=== PATIENT | male | born 1985 | race Caucasian/White ===

== ENCOUNTER 2019-11-13 11:17 | Observation (INO) | payer OTHER ==
[2019-11-13] VITALS (9 sets, daily range): BP systolic 99–121; BP diastolic 43–78
[~2019-11-13] VITALS: Ht 177.8 cm; Wt 84.9 kg
[~2019-11-13 11:17] MED LIST: BACTRIM DS 8001 TA1 PO; KEFLEX500 M1 PO; NAPROSYN500 MG PO
[2019-11-13 12:24] LABS: BASO # 0.1 10*3/uL (0.0-0.1); BASO % 0.3 % (0.0-1.0); EOS % 0.2 % (1.0-4.0); HEMATOCRIT 45.9 % (42.0-52.0); LYMPH # 1.2 10*3/uL (1.3-4.4); LYMPH % 6.7 % (27.0-41.0); MEAN CORPUSCULAR HGB 29.9 pg (27.0-31.0); MEAN CORPUSCULAR HGB CONC 32.5 g/dl (33.0-37.0); MEAN PLATELET VOLUME 8.8 fl (9.6-12.3); MONO # 1.1 10*3/uL (0.1-1.0); MONO % 6.1 % (3.0-9.0); NEUT # 15.8 10*3/uL (2.3-7.9); NEUT % 85.9 % (47.0-73.0); PLATELET COUNT AUTOMATED 304 10*3/uL (130-400); RED BLOOD COUNT 4.99 10*6/uL (4.50-5.90); RED CELL DISTRI WIDTH 13.6 % (0-14.5); WHITE BLOOD COUNT 18.5 10*3/uL (4.8-10.8)
[2019-11-13 12:41] LABS: ALBUMIN 3.5 gm/dl (3.1-4.5); ALKALINE PHOSPHATASE 72 U/L (45-117); BUN 14 mg/dl (7-24); CHLORIDE 113 mmol/L (98-107); CREATININE 1.25 mg/dL (0.70-1.30); POTASSIUM 3.7 mmol/L (3.5-5.1); SGOT/AST 53 IU/L (3-35); SGPT/ALT 33 U/L (12-78); SODIUM 137 mmol/L (136-145); TOTAL PROTEIN 7.5 gm/dL (6.4-8.2)
--- NOTE | 2019-11-13 12:41 | NUR ---
pt with snoring respirtions, pox 92% ra. notified dr browning 0.4 narcan ordered.
[2019-11-13 12:43] LABS: ETHYL ALCOHOL < 3.0 mg/dl (<3)
--- NOTE | 2019-11-13 13:02 | NUR ---
0.4 IV NARCAN ORDERED BY DR SCHWARTZ, IV ESTABLISED BY DR ACUNA INFILTRATED, DR SCHWARTZ REFUSING IM ADMINISTERATION, DR SCHWARTZ TO ATTEMPT A SECOND IV. PT AWAKES WITH CARE.
--- NOTE | 2019-11-13 13:18 | NUR ---
A SECOND IV WAS ESTABLISED AN 0.4 OIV NARCAN WAS ADMINISTERED . PT IS SLIGHTLY MORE AWAKE AT THIS TIME. POX 98% RA. WILL MONITOR.
--- NOTE | 2019-11-13 13:38 | NUR ---
0.4 IV NARCAN GIVEN. WILL MONITOR.
--- NOTE | 2019-11-13 14:04 | NUR ---
PT WAS ADMINISTERED A 3 RD DOSE OF NARCAN IN THE ER. PT STATES SHE IS AWAKE. PT PT CONTINUE TO REST WITH HIS EYES CLOSED. SNORING HEARD. POX 96% RA.
--- NOTE | 2019-11-13 14:15 | NUR ---
A 34yr old male, admitted to [facility], under the services of RAMIRO Salas DO with a diagnosis of ACCIDENTAL HEROIN OVERDOSE. Chief complaint is [place] unresponsive [place] [address], administered Narcan by a bystander, EMS, and three times in ER. Patient arrived via stretcher from ER. Monitor applied. Initial assessment completed. Vital signs taken and recorded. On arrival patient able to move from the cart to the bed with much prompting. Able to tell me he's "5'10"". Otherwise he is somnolent. Clothing/patient valuable form completed. Patient attached to monitor, continuous pulse ox and placed in side lying position. Bed exit alarm activated. See all appropriate interventions. KESHAV CHEUNG L
[2019-11-13 14:36] LABS: BILIRUBIN Negative; BLOOD Negative (Negative); CLARITY Clear (Clear); COLOR Yellow (Yellow); GLUCOSE 2+; KETONE Trace; LEUKO ESTERASE Negative (Negative); NITRITE Negative (Negative)
[2019-11-13 14:47] LABS: URINE AMPHETAMINES < 1000 (1000ng/ml); URINE BARBITURATES < 200 (200ng/ml); URINE BENZODIAZEPINES < 200 (200ng/ml); URINE CANNABINOIDS (THC) < 50 (50ng/ml); URINE COCAINE > 300 (300ng/ml); URINE METHADONE < 300 (300ng/ml); URINE OPIATES > 300 (300ng/ml); URINE PHENCYCLIDINE < 25 (25ng/ml)
[2019-11-13 15:03] LABS: BACTERIA TRACE
--- NOTE | 2019-11-13 17:38 | NUR ---
PT WAS ACCOMPANIED TO AND FROM RADIOLOGY FOR CT SCAN OF HEAD. WHEN WE WERE IN RADIOLOGY HE ASKED "WHY ARE WE DOING THIS?" I SAID TO R/O A HEAD INJURY SINCE HE WAS FOUND ON THE STREET. HE SAID "I WAS UP ALL NIGHT. I'M TIRED". WHEN WE RETURNED TO [facility] HE SAID "I'M THIRSTY". HE DRANK TWO ORANGE JUICES WITHOUT ANY DIFFICULTY. POLITE, SAYING "PLEASE AND THANK-YOU". COOPERATIVE. IV FLUIDS CONTINUE.
--- NOTE | 2019-11-13 20:00 | NUR ---
PT RESTING IN BED AWAKE, ALERT AND ORIENTED TALKING ON PHONE. RESP NONLABORED. NO ACUTE DISTRESS NOTED. NO COMPLAINTS VOICED. IV PATENT AND IVF'S INFUSING ORDERED WITHOUT DIFFICULTY. DENIES ANY PAIN OR DISCOMFORT.
--- NOTE | 2019-11-13 20:20 | NUR ---
PT LEFT AMA. MK EREMOVED. AMA PAPER SIGNED. DR PARHAM NOTIFIED.
== END 2019-11-13 20:20 | disposition left against medical advice (07) ==
LOC: ED 11:17 → ICCU 13:48 → EDHOLD 13:48 → ICCU 14:02
PROVIDERS: Emergency Medicine; ADMIT Family Medicine; ATTEND Family Medicine
DX: T40.1X1A Poisoning by heroin, accidental (unintentional), initial encounter (principal); D72.829 Elevated white blood cell count, unspecified; E87.8 Other disorders of electrolyte and fluid balance, not elsewhere classified; R00.0 Tachycardia, unspecified; G93.41 Metabolic encephalopathy; R74.0 Nonspecific elevation of levels of transaminase and lactic acid dehydrogenase [LDH]

== ENCOUNTER 2019-11-22 12:37 | Emergency (ER) | payer OTHER ==
[~2019-11-22] VITALS: Wt 86.2 kg
== END 2019-11-22 13:00 | disposition short-term general hospital (02) ==
LOC: ED 12:37
DX: S09.90XA Unspecified injury of head, initial encounter (principal); S09.93XA Unspecified injury of face, initial encounter; S79.911A Unspecified injury of right hip, initial encounter; S89.91XA Unspecified injury of right lower leg, initial encounter; S89.92XA Unspecified injury of left lower leg, initial encounter; V47.5XXA Car driver injured in collision with fixed or stationary object in traffic accident, initial encounter; Y93.89 Activity, other specified; Y92.89 Other specified places as the place of occurrence of the external cause; Y99.8 Other external cause status